=== PATIENT | male | born 2000 | race Caucasian/White ===

== ENCOUNTER → 2019-07-02 | Outpatient (CLI) | payer BC, OTHER ==
[2019-07-02 13:05] LABS: Basophils % (A) 1 %; Eosinophils # (A) 0.1 k/uL (0-0.7); Eosinophils % (A) 1 %; HCT 46.6 % (39.0-53.0); HGB 15.2 gm/dL (13.0-17.5); Lymphocytes # (A) 2.3 k/uL (1.0-4.8); Lymphocytes % (A) 28 %; MCH 30.3 pg (25.0-35.0); MCHC 32.6 g/dL (31.0-37.0); MCV 92.8 fL (80.0-100.0); Mean Platelet Volume 8.9; Monocytes # (A) 0.5 k/uL (0-1.0); Monocytes % (A) 6 %; Neutrophils % (A) 62 %; Platelet Count 184 k/uL (150-450); RBC 5.02 m/uL (4.30-5.90); RDW 11.6 % (11.5-15.5); WBC 8.1 k/uL (4.0-11.0)
[2019-07-02 14:11] LABS: Erythrocyte Sedimentation Rate 3 mm/hr (0-15)
[2019-07-02 20:11] LABS: African American GFR (CKD) 150.1 (60.0-200.0); Albumin 5.2 g/dL (3.80-4.90); Albumin/Globulin Ratio 2.48 (1.60-3.17); Anion Gap 6.8 mmol/L (4.00-12.00); BUN/Creat Ratio 21.25 Ratio (12.00-20.00); Calcium 10.7 mg/dL (8.7-10.3); Carbon Dioxide 29.2 mmol/L (21.6-31.8); Globulin 2.1 g/dL (1.6-3.3); Non-African American GFR(CKD) 129.5 (60.0-200.0); Total Bilirubin 0.7 mg/dL (0.2-1.2); Total Protein 7.3 g/dL (6.2-8.2)
== END | disposition home or self-care (01) ==
LOC: LABWHC1 11:57
PROVIDERS: ATTEND Internal Medicine
DX: R10.9 Unspecified abdominal pain (principal)
CPT/HCPCS: 36415; 80053; 82150; 83690; 84443; 85025; 85652

== ENCOUNTER → 2019-07-16 | Day surgery (SDC) | payer BC, OTHER ==
[2019-07-14 10:47] VITALS: BMI 21.3
[~2019-07-16] MED LIST: LACTATED RINGERS 1,000 ML IV SCH; LIDOCAINE 1% 20 ML VIAL (10MG/ML) FOR IV START INTRADERMA PRN; LIDOCAINE 1% INJ 10MG/ML (20 ML MDV) ONE; MIDAZOLAM 2 MG/2 ML VIAL ONE; PROPOFOL 10 MG/ML 20 ML VIAL IV ONE; fentaNYL (PF) 50 MCG/ML 2 ML AMP ONE
[2019-07-16 08:21] VITALS: TEMP 98.2
--- NOTE | 2019-07-16 09:53 | P.PCN ---
Date of Procedure: 07/16/19 Description of Procedure: Brief history: Patient is a pleasant scheduled for an elective upper endoscopy as well as colonoscopy as a part of evaluation of symptoms of nausea and vomiting and abdominal pain. Seen in the gastroenterology clinic patient also reported 100 pounds of weight loss over the past year. Procedure performed: Esophagogastroduodenoscopy with biopsy Colonoscopy with biopsy Estimated blood loss: Minimal. Preoperative diagnosis: Nausea and vomiting, abdominal pain Anesthesia: [facility] – [place], [place] Procedure: After informed consent was obtained from the patient was brought into the endoscopy unit and IV sedation was administered by anesthesia under continuous monitoring. Initially upper endoscopy was done. The Olympus GF 190 video endoscope was inserted into the mouth and esophagus intubated without any difficulty and was gradually advanced into the stomach and duodenum and care fully examined. The bulb and second part of the duodenum appeared normal, with biopsies taken to rule out celiac sprue. The scope was then withdrawn into the stomach adequately insufflated with air and upon careful examination the antrum and body, cardia and fundus appeared normal, with mild scattered erythema in the antrum and body suggestive of mild gastritis with biopsies taken to rule out H elicobacter pylori. The scope was then withdrawn into the esophagus. The GE junction was located at 43 cm to the incisors and appeared regular with biopsies taken. It appeared regular with no erythema erosions or ulcerations. Rest of the esophagus appeared normal, with midesophagus biopsied there did appear to be some possible candidiasis in that area. Patient tolerated the procedure well. At this time the patient continued to remain sedation. Initial digital rectal examination was normal. Olympus CF 190 video colonoscope was then inserted into the rectum and gradually advanced to the cecum without any difficulty. Careful examination was performed as the scope was gradually being withdrawn. The prep was excellent. The cecum, ascending colon, transverse colon, descending colon, sigmoid colon and rectum appeared normal, with biopsies taken of the right and left colon in the setting of explain weight loss. Terminal ileum was also intubated and appeared normal with biopsies taken. Retroflexion was performed in the rectum and no lesions were noted. Patient tolerated the procedure well. Impression: 1. Mild gastritis and body biopsied. Biopsies of the duodenum and GE junction as well as the midesophagus. 2. Normal-appearing colon from rectum to cecum with normal appearing terminal ileum, random biopsies were taken from the right colon, left colon and terminal ileum. Recommendations: Findings of this examination were discussed with the patient as well as his mother. Okay to resume diet. Okay to resume medications. Await pathology from biopsies. Follow up in gastroenterology clinic as previously scheduled. Continue omeprazole therapy until that time.
[2019-07-16 10:00] VITALS: RESP 17
[2019-07-16 10:07] VITALS: PULSE 43
[2019-07-16 10:35] VITALS: BP 100/59
== END ==
LOC: ORWHC2ENDO 07:49
PROVIDERS: ATTEND Internal Medicine
DX: K29.50 Unspecified chronic gastritis without bleeding (principal); K22.8 Other specified diseases of esophagus; R89.7 Abnormal histological findings in specimens from other organs, systems and tissues; K52.9 Noninfective gastroenteritis and colitis, unspecified; Z79.899 Other long term (current) drug therapy; Z79.1 Long term (current) use of non-steroidal anti-inflammatories (NSAID); Z98.890 Other specified postprocedural states
CPT/HCPCS: 88305; 45380; 43239; J2250; J2001; J3010; J2704

== ENCOUNTER 2022-01-23 10:27 | Emergency (ER) | payer BC, OTHER ==
--- NOTE | 2022-01-23 14:02 | ED ---
Psych HPI - General Chief Complaint: Psychiatric Symptoms Stated Complaint: Mental Health Time Seen by Provider: 01/23/22 11:40 Source: patient, RN notes reviewed Mode of arrival: ambulatory Limitations: no limitations - History of Present Illness Initial Comments: 19-year-old male presents emergency from for psychiatric treatment, evaluation. Patient states that he spent having increasing depression, recent suicide ideation. Patient states that about causing himself to have carbon monoxide poisoning. Patient states that his car broke down of recent he states that he is similar run to the [address]. Patient states that he's had increased stress because of this in his mother losing her job. Patient states he has never talked to counselor psychiatrist or therapist. Patient denies any current medication does admit to marijuana use denies any drug use otherwise or any alcohol abuse. - Related Data Home Medications Medication Instructions Recorded Confirmed No Known Home Medications 01/23/22 01/23/22 Allergies Allergy/AdvReac Type Severity Reaction Status Date / Time No Known Allergies Allergy Verified 01/23/22 12:33 Review of Systems ROS Statement: Those systems with pertinent positive or pertinent negative responses have been documented in the HPI. ROS Other: All systems not noted in ROS Statement are negative. Past Medical History Past Medical History: No Reported History Additional Past Medical History / Comment(s): LOST 100 # IN THE LAST YEAR, HAVING NAUSEA, STOMACH PAINS, POOR APPETITE., STATES HE COUGHS ONLY WHEN HE SMOKES MARIJUANA (DRY COUGH) History of Any Multi-Drug Resistant Organisms: None Reported Additional Past Surgical History / Comment(s): eye surgery x2 Past Anesthesia/Blood Transfusion Reactions: No Reported Reaction Past Psychological History: ADD/ADHD Smoking Status: Never smoker Past Alcohol Use History: None Reported Past Drug Use History: Marijuana - Past Family History Mother Family Medical History: No Reported History General Exam Limitations: no limitations General appearance: alert, in no apparent distress Head exam: Present: atraumatic, normocephalic, normal inspection Eye exam: Present: normal appearance, PERRL, EOMI. Absent: scleral icterus, conjunctival injection, periorbital swelling ENT exam: Present: normal exam, mucous membranes moist Neck exam: Present: normal inspection, full ROM. Absent: tenderness, meningismus, lymphadenopathy Respiratory exam: Present: normal lung sounds bilaterally. Absent: respiratory distress, wheezes, rales, rhonchi, stridor Cardiovascular Exam: Present: regular rate, normal rhythm, normal heart sounds. Absent: systolic murmur, diastolic murmur, rubs, gallop, clicks GI/Abdominal exam: Present: soft, normal bowel sounds. Absent: distended, tenderness, guarding, rebound, rigid Neurological exam: Present: alert, oriented X3 Psychiatric exam: Present: depressed Medical Decision Making - Medical Decision Making Patient was evaluated by EPS case discussed with psychiatrist recommends patient be discharged for outpatient treatment patient recent CT plan mom agrees this plan. Patient will be discharged in stable condition return parameters were discussed. Disposition Clinical Impression: Depression Disposition: HOME SELF-CARE Condition: Stable Instructions (If sedation given, give patient instructions): Depression (ED) Additional Instructions: Please return to the Emergency Department if symptoms worsen or any other concerns. Is patient prescribed a controlled substance at d/c from ED?: No Referrals: Radha Frausto MD [Primary Care Provider] - 1-2 days Time of Disposition: 15:54
[2022-01-23 16:37] VITALS: BP 117/65; PULSE 65; RESP 18
== END 2022-01-23 16:37 | disposition home or self-care (01) ==
LOC: EC 10:27
DX: F32.A Depression, unspecified (principal); F12.90 Cannabis use, unspecified, uncomplicated
CPT/HCPCS: 82075; 99283